=== PATIENT | male | born 1995 | race Caucasian/White ===

== ENCOUNTER 2023-04-19 07:57 | Emergency (ER) | payer MEDICAID, SELFPAY ==
[2023-04-19 08:03] VITALS: BP 145/101; PULSE 90; RESP 18; TEMP 35.8; O2SAT 98; BMI 39.1
--- NOTE | 2023-04-19 08:09 | ED.GENADULT ---
HPI - General Adult General Time Seen by Provider: 08:09 Date Seen: 04/19/23 Chief complaint: Abdominal Pain Stated complaint: right side abdominal pain Time Seen by Provider: 04/19/23 08:09 Source: patient Mode of arrival: ambulatory Limitations: no limitations History of Present Illness HPI narrative: Dequan is a 28-year-old male past medical history includes hypertension presents emerged department via private car with a right-sided abdominal. Patient states around 7:30 a.m. 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 Patient did have some generalized abdominal pain prior to going to bed last night, it progressively got worse this morning. He has had some chills, no fevers, he feels sweaty, he denies any chest pain or shortness of breath, denies any upper respiratory complaints. Patient had similar symptoms many years ago, they told him he was constipated. The patient states he has had normal bowel movements recently. No abdominal surgeries. Related Data Home Medications Medication Instructions Recorded Confirmed cyclobenzaprine 10 mg tablet 10 mg PO 3XD 04/19/23 04/19/23 metoprolol succinate 100 mg 100 mg PO DAILY 04/19/23 04/19/23 tablet,extended release 24 hr Previous Rx's Medication Instructions Recorded oxycodone-acetaminophen 5 mg-325 1 tab PO Q8H PRN pain #7 tabs 04/19/23 mg tablet (Percocet) tamsulosin 0.4 mg capsule (Flomax) 0.4 mg PO DAILY #3 caps 04/19/23 Allergies Allergy/AdvReac Type Severity Reaction Status Date / Time Penicillins AdvReac Severe Verified 04/19/23 08:17 amoxicillin AdvReac Intermediate Verified 04/19/23 08:10 hydrocodone AdvReac Intermediate Verified 04/19/23 08:10 Review of Systems Status of ROS: Reports: 10 or more systems reviewed and unremarkable except as noted in History and below PFSH PFSH Social History Smoking Status: Never smoker Do you use any of these nicotine containing products: None How often do you have a drink containing alcohol: monthly or less How often do you have six or more drinks on one occasion: Never AUDIT-C Alcohol total score: 1 Non-prescribed substance use: denies use Exam Narrative: Exam Narrative: General: Mild distress sitting up HEENT: Pupils equal round reactive to light, extraocular muscles intact Lungs: Clear to auscultation bilaterally Heart: Normal sinus rhythm S1-S2 Abdomen: Bowel sounds present, soft, tender to palpation right upper quadrant and flank Muscle skeletal: +5 upper lower extremit Neuro: Alert awake and oriented x3 Const: Vital Signs, click to edit/add: Vital Signs - 24 hr 04/19/23 08:03 04/19/23 10:05 Temperature 96.5 F L 97.7 F Pulse Rate [Right Pulse Oximeter] 90 82 Respiratory Rate 18 18 Blood Pressure [Ri ght Upper Arm] 145/101 H 134/88 Pulse Oximetry 98 95 Oxygen Delivery Me thod Room Air Room Air Course Course ED Course: 8:00 AM: AIDET performed, workup will include IV peripheral, 0.9 normal saline bolus, 50 mg IV Toradol, 0.5 mg IV Dilaudid for pain, will obtain CBC, CRP, CMP, lipase, urinalysis, suspect urolithiasis versus cholecystitis versus gastritis seems less likely appendicitis. differential diagnosis include life-threatening of appendicitis, aortic aneurysm, mesentery ischemia, bowel perforation, volvulus and bowel obstruction. Other considerations include IBD, cholecystitis, pancreatitis, hepatitis, gastritis, GERD, diverticulitis, pyelonephritis, UTI, urolithiasis. Reevaluation(s) Time of Reevaluation #1: 09:19 Reevaluation #1: Urinalysis was 3+ blood, will obtain CT abdomen pelvis without IV contrast rule out urolithiasis. CBC showed no leukocytosis, normal CRP, lipase within normal limits, metabolic panel within normal, LFTs mildly elevated, patient is feeling better after above care given. Time of Reevaluation #2: 10:59 Reevaluation #2: CT abdomen pelvis without IV contrast: IMPRESSION: Punctate calculus in the right ureterovesical junction/bladder with minimal right hydroureteronephrosis. Patient was given additional Flomax 0.4 mg, patient is doing well, urinalysis showed no signs infection, urine culture was pending, patient will pass the punctuate calculus, should follow-up with primary care provider over the neck 7-10 days, return precautions given. Vital Signs Vital signs: Initial Vital Signs Temperature 96.5 F L 04/19/23 08:03 Temperature Source Temporal Artery Scan 04/19/23 08:03 Pulse Rate 90 04/19/23 08:03 Pulse Rhythm Regular 04/19/23 08:03 Pulse Strength 3+ Normal 04/19/23 08:03 Respiratory Rate 18 04/19/23 08:03 Blood Pressure 145/101 H 04/19/23 08:03 Blood Pressure Mean 115 H 04/19/23 08:03 Blood Pressure Position Sitting 04/19/23 08:03 Pulse Oximetry 98 04/19/23 08:03 Oxygen Delivery Method Room Air 04/19/23 08:03 Vital Signs Temperature 96.5 F L 04/19/23 08:03 Pulse Rate 90 04/19/23 08:03 Respiratory Rate 18 04/19/23 08:03 Blood Pressure 145/101 H 04/19/23 08:03 Pulse Oximetry 98 04/19/23 08:03 Oxygen Delivery Method Room Air 04/19/23 08:03 Temperature 97.7 F 04/19/23 10:05 Pulse Rate 82 04/19/23 10:05 Respiratory Rate 18 04/19/23 10:05 Blood Pressure 134/88 04/19/23 10:05 Pulse Oximetry 95 04/19/23 10:05 Oxygen Delivery Method Room Air 04/19/23 10:05 Medications Administered Medications: Discontinued Medications Generic Name Dose Route Start Last Admin Trade Name Freq PRN Reason Stop Dose Admin Hydromorphone HCl 0.5 mg 04/19/23 08:26 04/19/23 08:40 Hydromorphone 0.5 Mg/0.5 Ml Inj IVP 04/19/23 08:27 0.5 mg ONCE ONE Administration Sodium Chloride 1,000 mls @ 1,000 mls/hr 04/19/23 08:14 04/19/23 09:12 0.9 % Sodium Chloride 1000 Ml IV 04/19/23 09:13 Infused .Q1H CHEMA Infusion Ketorolac Tromethamine 15 mg 04/19/23 08:13 04/19/23 08:35 Ketorolac 15 Mg/Ml Inj IVP 04/19/23 08:14 15 mg ONCE ONE Administration Tamsulosin HCl 0.4 mg 04/19/23 11:00 04/19/23 10:45 Tamsulosin Hcl 0.4 Mg Capsule PO 04/19/23 11:01 0.4 mg ONCE ONE Administration Medical Decision Making Lab Data Labs: Lab Results 04/19/23 04/19/23 Range/Units 08:20 08:30 WBC 8.14 (4.50-11.00) K/uL RBC 5.69 (4.30-5.90) m/uL Hgb 16.7 (13.5-17.5) gm/dL Hct 49.1 (37.0-53.0) % MCV 86 (80-100) fL MCH 29 (26-34) pg MCHC 34 (32-36) gm/dL RDW Coeff of Juany 11.6 (11.5-15.5) % Plt Count 408 (140-440) K/uL Neut % (Auto) 67.6 (42.0-72.0) % Lymph % (Auto) 23.6 (20-44) % Ector % (Auto) 6.0 (0.0-11.0) % Eos % (Auto) 2.1 (0.0-7.0) % Baso % (Auto) 0.5 (0.0-3.0) % Neut # (Auto) 5.50 (1.7-7.0) K/uL Lymph # (Auto) 1.92 (0.90-2.90) K/uL Ector # (Auto) 0.50 (0.00-0.90) K/UL Eos # (Auto) 0.17 (0.00-0.50) K/uL Baso # (Auto) 0.04 (0.00-0.30) K/uL Abs Immat Gran (auto) 0.02 (0.00-0.30) K/uL Imm/Tot Granulo (auto) 0.2 % Sodium 141 (135-149) mmol/L Potassium 3.8 (3.6-5.1) mmol/L Chloride 106 (96-114) mmol/L Carbon Dioxide 21 (20-32) mmol/L Anion Gap 14 (7-15) mEq/L BUN 13 (5-24) mg/dL Creatinine 0.8 (0.5-1.5) mg/dL Estimated Creat Clear 143.80 Estimated GFR 122 ml/min Glucose 123 H (60-115) mg/dL Calcium 10.0 (8.4-10.6) mg/dL Total Bilirubin 1.0 (0.1-1.5) mg/dL AST 60 H (12-35) U/L ALT 92 H (4-50) U/L Alkaline Phosphatase 57 (40-150) U/L C-Reactive Protein 1.0 (0.5-1.0) mg/dL Total Protein 9.3 H (6.0-8.3) g/dL Albumin 5.3 H (3.3-5.0) g/dL Lipase 43 (23-300) U/L Urine Color Dark yellow (Yellow) Urine Appearance Slightly Cloudy A (Clear) Urine pH 8.0 (5.0-8.5) Ur Specific [place] 1.020 (1.000-1.030) Urine Protein Trace A (Negative) Urine Glucose (UA) Negative (Negative) Urine Ketones Trace A (Negative) Urine Blood 3+ A (Negative) Urine Nitrite Negative (Negative) Urine Bilirubin Negative (Negative) Urine Urobilinogen 0.2 (0.2-1.0) Ur Leukocyte Esterase Negative (Negative) Urine RBC >100 A (0-2) Urine WBC 5-10 A (0-5) Ur Squamous Epith Cells Few (None-Few) Urine Bacteria Moderate A (None) Urine Mucus Moderate A (None) Discharge Plan Discharge Clinical Impression: Urolithiasis Patient Disposition: Home, Self-Care Condition: Improved Instructions: Renal Colic (ED) Additional Instructions: To continue with Motrin 600 mg ever 4-6 hours for pain, add Percocet 5-325 mg tablet for breakthrough pain. Additional Flomax 0.4 mg daily until stone has passed, to follow up with primary care provider in the next 7-10 days. Return if worsening symptoms. Activity Level: No Restrictions Prescriptions: New tamsulosin [Flomax] 0.4 mg capsule 0.4 mg PO DAILY Qty: 3 0RF oxycodone-acetaminophen [Percocet] 5-325 mg tablet 1 tab PO Q8H PRN (Reason: pain) Qty: 7 0RF No Action cyclobenzaprine 10 mg tablet 10 mg PO 3XD metoprolol succinate 100 mg tablet extended release 24 hr 100 mg PO DAILY Follow Up/Referrals: Provider,Not a Local [Referring] - Stand Alone Forms: [facility] Info Instructions
[2023-04-19 08:31] LABS: Basophils Absolute Auto 0.04 K/uL (0.00-0.30); Basophils Percent Auto 0.5 % (0.0-3.0); Eosinophils Absolute Auto 0.17 K/uL (0.00-0.50); Eosinophils Percent Auto 2.1 % (0.0-7.0); Hematocrit 49.1 % (37.0-53.0); Hemoglobin* 16.7 gm/dL (13.5-17.5); Immature Granulocytes Abs Auto 0.02 K/uL (0.00-0.30); Immature Granulocytes Pct Auto 0.2 %; Lymphocytes Absolute Auto 1.92 K/uL (0.90-2.90); Lymphocytes Percent Auto 23.6 % (20-44); Mean Corpuscular HGB Conc 34 gm/dL (32-36); Mean Corpuscular Hemoglobin 29 pg (26-34); Mean Corpuscular Volume 86 fL (80-100); Neutrophils Percent Auto 67.6 % (42.0-72.0); Platelet Count* 408 K/uL (140-440); RDW Coefficient of Variation % 11.6 % (11.5-15.5); Red Blood Count 5.69 m/uL (4.30-5.90); White Blood Count* 8.14 K/uL (4.50-11.00)
[2023-04-19] MEDS: 0.9 % SODIUM CHLORIDE 1000 ml 1,000 ML IV (08:34)
[2023-04-19] MEDS: KETOROLAC 15 MG/ML inj IVP (08:35)
[2023-04-19 08:36] LABS: Slide Review Reflex No
[2023-04-19] MEDS: HYDROmorphone 0.5 mg/0.5 ml inj IVP (08:40)
[2023-04-19 08:41] LABS: Appearance Urine Slightly Cloudy (Clear); Bilirubin Urine Negative (Negative); Blood Urine 3+ (Negative); Color Urine Dark yellow (Yellow); Glucose Urine Negative (Negative); Ketones Urine Trace (Negative); Leukocyte Esterase Urine Negative (Negative); Nitrite Urine Negative (Negative); Protein Urine Trace (Negative); Urobilinogen Urine 0.2 (0.2-1.0)
[2023-04-19 08:47] LABS: Albumin* 5.3 g/dL (3.3-5.0); Chloride* 106 mmol/L (96-114)
[2023-04-19 08:48] LABS: Potassium* 3.8 mmol/L (3.6-5.1); Sodium* 141 mmol/L (135-149)
[2023-04-19 08:50] LABS: Alanine Aminotransferase* 92 U/L (4-50); Alkaline Phosphatase* 57 U/L (40-150); Anion Gap 14 mEq/L (7-15); Aspartate Amino Transferase* 60 U/L (12-35); Blood Urea Nitrogen* 13 mg/dL (5-24); Carbon Dioxide* 21 mmol/L (20-32); Creatinine* 0.8 mg/dL (0.5-1.5); Estimated Glomerular Filt Rate 122 ml/min; Lipase* 43 U/L (23-300); Total Protein* 9.3 g/dL (6.0-8.3)
[2023-04-19 08:51] LABS: Glucose* 123 mg/dL (60-115)
[2023-04-19 08:58] LABS: Bacteria Urine Moderate; Mucus Urine Moderate; RBC Urine >100 (0-2); Squamous Epithelial Cell Urine Few (None-Few)
--- NOTE | 2023-04-19 09:18 | CRLHL7_ITS ---
For Patients: As a result of the Century Cures Act, medical imaging exams and procedure reports are released immediately into your electronic medical record. You may view this report before your referring provider. If you have questions, please contact your health care provider. INDICATION: Question urolithiasis. TECHNIQUE: CT abdomen and pelvis without contrast. COMPARISON: None available. FINDINGS: Lower chest: Minimal scarring versus subsegmental atelectasis in the visualized lung bases Liver: Unremarkable for unenhanced technique. Gallbladder and bile ducts: No stones or inflammation. No biliary dilatation. Pancreas: Unremarkable for unenhanced technique. Spleen: Unremarkable for unenhanced technique. Adrenal glands: Normal in size. No nodules. Kidneys: Punctate calcification at the right ureterovesical junction versus adjacent dependent portion of the bladder. There is minimal right hydroureteronephrosis. Otherwise, no renal or ureteral calculi identified. GI tract: Unremarkable. Normal in caliber. No sign of mass or inflammation. Normal appendix. Vasculature: Abdominal aorta is normal in caliber. Lymph nodes: No lymphadenopathy. Peritoneum/Abdominal Wall: Small fat containing right inguinal hernia. No intraperitoneal free air or free fluid. Pelvis: Decompressed bladder. Bones: Partially visualized left femoral intramedullary nail. IMPRESSION: Punctate calculus in the right ureterovesical junction/bladder with minimal right hydroureteronephrosis. Please note that all CT scans at this facility use dose modulation, iterative reconstruction, and/or weight-based dosing when appropriate to reduce radiation dose to as low as reasonably achievable. Dictated by Judy Rudd MD @ 04/19/2023 10:22:36 AM (Electronically Signed)
[2023-04-19 10:05] VITALS: BP 134/88; PULSE 82; RESP 18; TEMP 36.5; O2SAT 95
[2023-04-19] MEDS: TAMSULOSIN HCL 0.4 MG CAPSULE PO (10:45)
== END 2023-04-19 11:40 | disposition home or self-care (01) ==
PROVIDERS: Emergency Provider Student in an Organized Health Care Education/Training Program; PCP Family Medicine
DX: N20.9 Urinary calculus, unspecified (principal)
CPT/HCPCS: 36415; 74176; 80053; 81003; 81015; 83690; 85025; 86140; 87086; 96374; 96375; 99283; 99284; A9270; J1170; J1885; J7030

== ENCOUNTER 2024-09-02 09:44 | Emergency (ER) | payer MEDICAID, SELFPAY ==
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
--- OUTSIDE RECORDS SUMMARY | 2024-09-02 09:46 | XMS_ITS | Encounter Summary ---
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
--- OUTSIDE RECORDS SUMMARY | 2024-09-02 09:46 | XMS_ITS | Encounter Summary ---
Author Organization [facility] Address [address], [place] [address] Care Team Providers Care Marine Scientist Name Role Phone Jerardo Spring MD Primary Care Provider [phone] Encounter Details Date Type Department Care Team (Latest Contact Info) Description 09/05/1997 Orders Only Chely Neely Social History Tobacco Use Types Packs/Day Years [...] on filedocumented in this encounter Care Teams Marine Scientist Relationship Specialty [place] [address] [place] [address] PCP - General Family Practice 03/06/18 documented as of this encounter
--- OUTSIDE RECORDS SUMMARY | 2024-09-02 09:46 | XMS_ITS | Encounter Summary ---
Author Organization [facility] Address [address], [place] [address] Care Team Providers Care Hot Air Furnace Installer Repairer Name Role Phone Jerardo Spring MD Primary Care Provider [phone] Encounter Details Date Type Department Care Team (Latest Contact Info) Description 01/13/1997 Orders Only Chely Neely Social History Tobacco [...] on filedocumented in this encounter Care Teams Hot Air Furnace Installer Repairer Relationship Specialty [place] [address] [place] [address] PCP - General Family Practice 03/06/18 documented as of this encounter
--- OUTSIDE RECORDS SUMMARY | 2024-09-02 09:46 | XMS_ITS | Encounter Summary ---
Author Organization [facility] Address [address] [address] Care Team Providers Care Blood Bank Business Manager Name Role Phone Jerardo Spring MD Primary Care Provider [phone] Encounter Details Date Type Department Care Team (Late st Contact Info) Description 02/26/2014 Home Visit [facility] [address] [place] [address], [address] [place] [address] Mabel Sewell Social History Tobacco Use Types Packs/Day Years Used Date Smoking Tobacco: Some Days Cigars Comments:Twice a month Alcohol Use Standard Drinks/Week Comments Yes 0 (1 standard drink = 0.6 oz pur e alcohol) occasional Sex and Gender Information Value Date Recorded Sex Assigned at Not on file Legal Sex Male 5:59 PM CDT Gender Identity Not on file Sexual Orientation Not on file documented as of this encounter Progress Notes * Mabel Sewell - 02/26/2014 8:56 PM CST S: Recert Summary- focus of care for the next 60 days is L femur Fx - sp ORIF. B: Pt has been seen by SN for medication management, pain management and wound assessment. Surgical wounds are healed and pain is now controlled with Tylenol, Ibuprofen and Cyclobenzaprine. SN discharged their service on 01/31/14. Pt continues to receive PT for gait training, stair mobility, L LE ROM/strength ex, HEP and falls prevention. Pt has made progress with gait training with new orders to begin WB on L LE. Pt is currently allowed 40 lb WB on L LE with order to increase WB by 20 lbs every week until return to ortho on 03/26/14. Current assistance available: pt lives with father and sister who continue to assist as needed. Medication review: Reviewed current medications. No discrepancies. Pt is able to take his meds indep. Vitals: HR 90 bpm, BP 136/90 mmHg, Temp 98.8deg F Wounds: surgical incisions are healed . Pt has no PU or open areas. Edema: moderate dependent edema L foot/ankle Bowel/Bladder: no constipation or incontinence Pain: PL in L LE is 0/10 at best, 5/10 at worst. Pain is controlled with meds and rest. ROM: L knee AROM 0-90 degrees. L ankle and hip ROM is WFL. Strength: L quad strength is 4-/5. Pt is indep with L LE SLR with 10 degree ext lag. L hip strength is 4+/5, L ankle strength is 4/5. Transfers: indep sit >< stand at bed, chair, toilet. Pt needs CGA to step over walk in shower threshold due to PWB status on L LE. Father provides assist with shower transfer. Gait: Indep with use of 2ww on level surface. Pt able to amb with crutches with supervision on level surface in home with 40 lb WB restriction on L LE. Bed mobility: indep . Pt is no longer using the hospital bed. Stair mobility: up/down 1 flight of steps with use of 1 railing and crutches with supervision. Pt needs close SBA for amb up/down 3 garage steps without railing. Balance: 5 /10 MAHC10 is fall risk. Control/coordination: decreased coordination L LE due to weakness in quad Home safety: pt has a dog, cat and stairs which are falls hazard. No other issues. Cognition: A & O x 3 Mood/anxiety/confusion: Anxiety improved per pt report. Pt does report some depression since being home bound. Equipment: 2ww, W/C, crutches A: PT impression : Pt is making progress with transfers, gait, stair mobility, L knee ROM, L quad strength. Skilled PT is appropriate to progress to indep stair mobility, gait training with gradual increase in L LE WB as ordered. Pt will also need cont PT to work on L knee ROM/strength to maximize functional use of L LE for return to indep PLOF and return to community mobility. Reviewed care plan goals/interventions which are appropriate . R: PT 1x/week for 4 weeks. Mabel Sewell, PT TREATING OPERATOR documented in this encounter Plan of Treatment Not on file documented as of this encounter Visit Diagnoses Not on filedocumented in this encounter Care Teams Blood Bank Business Manager Relationship Specialty [place] [address] [place] [address] PCP - General Family Practice 03/06/18 documented as of this encounter
--- OUTSIDE RECORDS SUMMARY | 2024-09-02 09:46 | XMS_ITS | Encounter Summary ---
Author Organization [facility] Address [address] [place] [address] Care Team Providers Care Figure Skater Name Role Phone Jerardo Spring MD Primary Care Provider [phone] Encounter Details Date Type Department Care Team (Late st Contact Info) Description 04/09/2014 Correspondence [facility] [address] [place] [phone] Myranda Balderas MD [address] [place], [place] [phone] ORDER TRAVELERS Social History Tobacco Use Types Packs/Day Years [...] on filedocumented in this encounter Care Teams Figure Skater Relationship Specialty [place] [address] [place] [address] PCP - General Family Practice 03/06/18 documented as of this encounter
--- OUTSIDE RECORDS SUMMARY | 2024-09-02 09:46 | XMS_ITS | Encounter Summary ---
Author Organization [facility] Address [address] [address] Care Team Providers Care Grocery Clerk Selling Name Role Phone Jerardo Spring MD Primary Care Provider [phone] Encounter Details Date Type Department Care Team (Late st Contact Info) Description 06/14/2014 Correspondence [facility] [address] [place] [address] Radiology, Provider MRI SAFETY SHEET AND COMPATIBILITY FORM Social History Tobacco Use Types Packs/Day Years Used Date Smoking Tobacco: Some Days Cigars Smokeless Tobacco: Never Comments:Twice a month Alcohol Use Standard Drinks/Week [...] on filedocumented in this encounter Care Teams Grocery Clerk Selling Relationship Specialty [place] [address] [place] [address] PCP - General Family Practice 03/06/18 documented as of this encounter
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
--- OUTSIDE RECORDS SUMMARY | 2024-09-02 09:46 | XMS_ITS | Encounter Summary ---
Author Organization [facility] Address [address] [place] [address] Care Team Providers Care Bass Guitar Teacher Name Role Phone Jerardo Spring MD Primary Care Provider [phone] Encounter Details Date Type Department Care Team (Latest Contact Info) Description 06/24/1998 Orders Only [facility] Social History Tobacco Use Types Packs/Day Years [...] on filedocumented in this encounter Care Teams Bass Guitar Teacher Relationship Specialty [place] [address] [place] [address] PCP - General Family Practice 03/06/18 documented as of this encounter
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
--- OUTSIDE RECORDS SUMMARY | 2024-09-02 09:46 | XMS_ITS | Encounter Summary ---
Author Organization [facility] Address [address], [place] [address] Care Team Providers Care Family Law Paralegal Name Role Phone Jerardo Spring MD Primary Care Provider [phone] Encounter Details Date Type Department Care Team (Late st Contact Info) Description 01/04/2014 Emergency Room External to [facility], Provider TACHYCARDIA ANXIETY SHORTNESS OF BREATH Social History Tobacco Use Types Packs/Day Years [...] on filedocumented in this encounter Care Teams Family Law Paralegal Relationship Specialty [place] [address] [place] [address] PCP - General Family Practice 03/06/18 documented as of this encounter
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
--- OUTSIDE RECORDS SUMMARY | 2024-09-02 09:46 | XMS_ITS | Encounter Summary ---
Author Organization [facility] Address [address], [place] [address] Care Team Providers Care Insulator Helper Name Role Phone Jerardo Spring MD Primary Care Provider [phone] Encounter Details Date Type Department Care Team (Late st Contact Info) Description 08/19/1994 Orders Only [facility] Lester Kay MD [facility] [address] [place], [place] [id number] Social History Tobacco Use Types Packs/Day Years [...] on filedocumented in this encounter Care Teams Insulator Helper Relationship Specialty [place] [address] [place], [place] [id number] PCP - General Family Practice 03/06/18 documented as of this encounter
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
--- OUTSIDE RECORDS SUMMARY | 2024-09-02 09:46 | XMS_ITS | Encounter Summary ---
Author Organization [facility] Address [address] [place] [address] Care Team Providers Care Lockstitch Topstitcher Name Role Phone Jerardo Spring MD Primary Care Provider [phone] Encounter Details Date Type Department Care Team (Late st Contact Info) Description 04/05/2014 Correspondence [facility] [address] [place] [address] Myranda Balderas MD [address] [place], [place] [address] 11 HOME CARE ORDERS Social History Tobacco Use Types Packs/Day Years [...] on filedocumented in this encounter Care Teams Lockstitch Topstitcher Relationship Specialty [place] [address] [place] [address] PCP - General Family Practice 12/3/18 documented as of this encounter
--- OUTSIDE RECORDS SUMMARY | 2024-09-02 09:46 | XMS_ITS | Encounter Summary ---
Author [facility] Address [address], [place] [address] Care Team Providers Care Central Office Operator Supervisor Name Role Phone Jerardo Spring MD Primary Care Provider [phone] Encounter Details Date Type Department Care Team (Late st Contact Info) Description 02/22/2014 Correspondence None No Primary/Referring, Phy MOBILITY ASSISTIVE EQUIPMENT Social History Tobacco Use Types Packs/Day Years [...] on filedocumented in this encounter Care Teams Central Office Operator Supervisor Relationship Specialty [place] [address] [place] [address] PCP - General Family Practice 03/06/18 documented as of this encounter
--- OUTSIDE RECORDS SUMMARY | 2024-09-02 09:46 | XMS_ITS | Encounter Summary ---
Author Organization [facility] Address [address], [place] [address] Care Team Providers Care Health Nurse Name Role Phone Jerardo Spring MD Primary Care Provider [phone] Encounter Details Date Type Department Care Team (Latest Contact Info) Description 03/14/2014 Correspondence None No Primary/Referring, Phy [place] Social History Tobacco Use Types Packs/Day Years [...] on filedocumented in this encounter Care Teams Health Nurse Relationship Specialty [place] [address] [place] [address] PCP - General Family Practice 03/06/18 documented as of this encounter
--- OUTSIDE RECORDS SUMMARY | 2024-09-02 09:46 | XMS_ITS | Encounter Summary ---
Author Organization [employer] Address [address] [place] [address] Care Team Providers Care Experimental Flight Test Mechanic Name Role Phone Jerardo Spring MD Primary Care Provider [phone] Reason for Visit * Reason Comments Refill metoprolol succinate (TOPROL XL) 50 MG 24 hour release tablet [Pharmacy Med Name: METOPROLOL ER SUCCINATE 50MG TABS] Encounter Details Date Type Department Care Team (Late st Contact Info) Description 08/02/2024 Refill [facility] [id number] [place] [phone] [place] [id number] [place] [id number] Refill (metoprolol succinate (TOPROL XL) 50 MG 24 hour release tablet [Pharmacy Med Name: METOPROLOL ER SUCCINATE 50MG TABS]) Social History Tobacco Use Types Packs/Day Years [...] any time in the past 12 m [facility], were you homeless or living in a penitentiary (including now)? No 07/11/2024 Sex and Gender Information Value Date Recorded Sex Assigned at Not on file Legal Sex Male 5:59 PM CDT Gender Identity Not on file Sexual Orientation Not on file Occupation Industry Job Start Date Job End Date not working since [employer] 2 years ago Not on file Not on file Not on file documented as of this encounter Nursing Notes * Evonne Lopez RN - 08/06/2024 2:24 PM CDT Further Assistance Needed on Refill from Clinician RN reviewed. Medication ordered for short term. Medication newly ordered in last 12 months and Please advise if intermediate designer supply is appropriate Review pended order for accuracy and sign if appropriate, Document if appointment is needed for further refills, and Route to Front Line to schedule appointment Requested Prescriptions Pending Prescriptions Disp Refills metoprolol succinate (TOPROL XL) 50 MG 24 hour release tablet [Pharmacy Med Name: METOPROLOL ER SUCCINATE 50MG TABS] 90 Tablet 3 Sig: TAKE 1 TABLET(50 MG) BY MOUTH DAILY documented in this encounter Plan of Treatment Not on file documented as of this encounter Visit Diagnoses Diagnosis Tachycardia Tachycardia, unspecified documented in this encounter Care Teams Experimental Flight Test Mechanic Relationship Specialty [place] [address] [place] [address] PCP - General Family Practice 03/06/18 documented as of this encounter
--- OUTSIDE RECORDS SUMMARY | 2024-09-02 09:46 | XMS_ITS | Clinical Summary ---
Author Organization [facility] Address [address] [place] [address] Care Team Providers Care Wire Spinner Name Role Phone [facility] Primary Care Provider Allergies Active Allergy Reactions Criticality Noted Date Comments Penicillins 02/19/2018 Burning down esophagus Hydrocodone-Acetaminophen Hives 01/04/2014 Medications LORazepam (ATIVAN) 0.5 MG tablet Take 1 tablet (0.5 mg) by mouth every 8 hours as needed for anxiety 8 tablet 0 01/04/2014 Active LORazepam (ATIVAN) 0.5 MG tablet Take 1 tablet (0.5 mg) by mouth every 8 hours as needed for anxiety 8 tablet 0 01/04/2014 Active AMLODIPINE BESYLATE PO Active PREDNISONE PO Active MOTRIN IB PO Active Social History Tobacco Use Types Packs/Day Years Used Date Smoking Tobacco: Former Smokeless Tobacco: Former Alcohol Use Standard Drinks/Week Comments Yes 0 (1 standard drink = 0.6 oz pur e alcohol) occasional Sex and Gender Information Value Date Recorded Sex Assigned at Not on file Legal Sex Male 3:35 AM SENIOR TECHNICAL SUPPORT ENGINEER Gender Identity Not on file Sexual Orientation Not on file Last Filed Vital Signs Vital Sign Reading Time Taken Comments Blood Pressure 131/87 02/19/2018 2:47 PM SENIOR TECHNICAL SUPPORT ENGINEER Pulse 99 02/19/2018 1:48 PM SENIOR TECHNICAL SUPPORT ENGINEER Temperature 36.7 C (98 F) 02/19/2018 1:48 PM SENIOR TECHNICAL SUPPORT ENGINEER Respiratory Rate 16 02/19/2018 1:48 PM SENIOR TECHNICAL SUPPORT ENGINEER Oxygen Saturation 98% 02/19/2018 1:48 PM SENIOR TECHNICAL SUPPORT ENGINEER Inhaled Oxygen Concentration - - Weight 122.5 kg (270 lb) 02/19/2018 1:48 PM SENIOR TECHNICAL SUPPORT ENGINEER Height - - Body Mass Index - - Plan of Treatment Not on file Insurance [employer] Care Teams Wire Spinner Relationship Specialty Start Date End Date [facility] [address] [place] [address] PCP - General 01/04/14
--- OUTSIDE RECORDS SUMMARY | 2024-09-02 09:46 | XMS_ITS | Encounter Summary ---
Author Organization [facility] Address [address], [place] [address] Care Team Providers Care Guest Service Representative Name Role Phone Jerardo Spring MD Primary Care Provider [phone] Encounter Details Date Type Department Care Team (Late st Contact Info) Description 12/25/2013 Consent for Procedure/Treatme nt [facility] INFORMED CONSENT RECORD Social History Tobacco Use Types Packs/Day Years [...] on filedocumented in this encounter Care Teams Guest Service Representative Relationship Specialty [place] [address] [place] [address] PCP - General Family Practice 03/06/18 documented as of this encounter
--- OUTSIDE RECORDS SUMMARY | 2024-09-02 09:46 | XMS_ITS | Encounter Summary ---
Author Organization [facility] Address [address], [place] [address] Care Team Providers Care Manager Operations Research Name Role Phone Jerardo Spring MD Primary Care Provider [phone] Encounter Details Date Type Department Care Team (Latest Contact Info) Description 03/21/1998 Orders Only Trevon Manley MD Social History Tobacco Use Types Packs/Day Years [...] on filedocumented in this encounter Care Teams Manager Operations Research Relationship Specialty [place] [address] [place] [address] PCP - General Family Practice 03/06/18 documented as of this encounter
--- OUTSIDE RECORDS SUMMARY | 2024-09-02 09:46 | XMS_ITS | Encounter Summary ---
Author Organization [facility] Address [address], [place] [address] Care Team Providers Care Primary Health Organisation Manager Name Role Phone Jerardo Spring MD Primary Care Provider Encounter Details Date Type Department Care Team (Late st Contact Info) Description 05/18/1994 Orders Only [facility] Gemma Smith MD Social History Tobacco Use Types Packs/Day [...] on filedocumented in this encounter Care Teams Primary Health Organisation Manager Relationship Specialty [place] [address] [place] [address] PCP - General Family Practice 03/06/18 documented as of this encounter
--- OUTSIDE RECORDS SUMMARY | 2024-09-02 09:46 | XMS_ITS | Encounter Summary ---
Author Organization Counts include 234 beds at the [facility] Address [address] [place] [address] Care Team Providers Care Import Coordinator Name Role Phone Jerardo Spring MD Primary Care Provider [phone] Encounter Details Date Type Department Care Team (Late st Contact Info) Description 02/22/2018 Correspondence [facility] [address] [place], [place] [phone] [place] [address] [place], [place] [id number] CERTIFICATION OF HEALTH CARE PROVIDER Social History Tobacco Use Types Packs/Day Years Used Date Smoking Tobacco: Former Cigars Smokeless Tobacco: Never Comments:Twice a month Alcohol Use Standard Drinks/Week Comments No 0 (1 standard drink = 0.6 oz [...] on filedocumented in this encounter Care Teams Import Coordinator Relationship Specialty [place] [address] [place] [address] PCP - General Family Practice 03/06/18 documented as of this encounter
[2024-09-02 09:50] VITALS: BP 159/106; PULSE 89; RESP 18; TEMP 36.1; O2SAT 95; BMI 32.6
--- NOTE | 2024-09-02 09:57 | CRLHL7_ITS ---
For Patients: As a result of the Century Cures Act, medical imaging exams and procedure reports are released immediately into your electronic medical record. You may view this report before your referring provider. If you have questions, please contact your health care provider. Indication: Injury 4 days ago, hard impact on water slide, fracture of back diagnosed in [place], history of spine degeneration. Technique: Noncontrast axial CT of the lumbar spine with coronal and sagittal reformats. Comparison: CT abdomen pelvis report 04/19/2023 Findings: Acute fracture of the left ventral L1 body, involving superior and inferior endplates, with 9 mm cortical anteropulsion. Preserved lumbar lordosis. No spondylolisthesis. No other acute fracture identified. No high-grade neural foraminal or spinal canal stenosis. Included SI joints appear symmetric and atraumatic. Impression: 1. Acute L1 compression fracture as detailed. 2. No spinal canal stenosis. Please note that all CT scans at this facility use dose modulation, iterative reconstruction, and/or weight-based dosing when appropriate to reduce radiation dose to as low as reasonably achievable. Dictated by Ashley Mcclure MD @ 09/02/2024 10:36:55 AM (Electronically Signed)
--- NOTE | 2024-09-02 09:58 | ED_ITS ---
HPI - General Adult General Chief complaint: Back Injury/Pain Stated complaint: Broke back on 4 days ago Time Seen by Provider: 09/02/24 09:50 History of Present Illness HPI narrative: 29 year white male was at a water slide in [place] and injured his back. He had an evaluation at an ER and had lumbar fracture by his report. They set him up to see someone in [facility] but he wanted to come back to [place]. He denies leg pain but did not describes low back pain he reports that he had a ?lumbar? fracture. He has no imaging or other records with him. He is generally healthy other than hypertension he takes medicine for that. He has been Oxy on oxycodone as well. No bowel or bladder incontinence fever chills perineal numbness. He points to his lumbar spine just above his belt line where he has discomfort. He is able to ambulate but he is in good amount of discomfort. Related Data Home Medications ?Medication ?Instructions ?Recorded ?Confirmed cyclobenzaprine 10 mg tablet 10 mg PO 3XD 04/19/2304/28 metoprolol succinate 100 mg 50 mg PO DAILY 04/19/23 tablet,extended release 24 hr oxycodone 5 mg capsule 5 mg PO Q6H 09/02/24 5 Previous Rx's ?Medication ?Instructions ?Recorded oxycodone-acetaminophen 5 mg-325 1 tab PO Q8H PRN pain #7 tabs 04/19/23 mg tablet (Percocet) tamsulosin 0.4 mg capsule (Flomax) 0.4 mg PO DAILY #3 caps 04/19/23 Allergies Allergy/AdvReac Type Severity Reaction Status Date / Time Penicillins AdvReac Severe Verified 04/19/23 08:17 amoxicillin AdvReac Intermediate Verified 04/19/23 08:10 hydrocodone AdvReac Intermediate Verified 04/19/23 08:10 Review of Systems Status of ROS: Reports: 6 or more systems reviewed and unremarkable except as noted in History and below PFSH PFSH Social History Smoking Status: Never smoker Do you use any of these nicotine containing products: None How often do you have a drink containing alcohol: monthly or less How often do you have six or more drinks on one occasion: Never AUDIT-C Alcohol total score: 1 Non-prescribed substance use: denies use Exam Narrative: Exam Narrative: Objective: Patient's vital signs show elevated blood pressure He is alert or x3 He is in mild distress and is back discomfort Slightly flexed position, he is able to ambulate has decent strength in his lower extremities He has some palpable tenderness along his paravertebral muscles and midline of his lumbar spine. No bruising noted. Const: Vital Signs, click to edit/add: Vital Signs - 24 hr 09/02/24 09:50 09/02/24 10:37 09/02/24 10:37 Temperature 96.9 F L Pulse Rate 75 Pulse Rate [Pulse Oximeter] 89 70 Respiratory Rate 18 16 Blood Pressure Blood Pressure [Ri ght Upper Arm] 159/106 H 125/84 Pulse Oximetry 95 96 95 Oxygen Delivery Me thod Room Air Room Air 09/02/24 10:39 09/02/24 10:45 09/02/24 11:00 Temperature Pulse Rate 73 74 68 Pulse Rate [Pulse Oximeter] Respiratory Rate Blood Pressure 125/84 Blood Pressure [Ri ght Upper Arm] Pulse Oximetry 96 94 99 Oxygen Delivery Me thod 09/02/24 11:01 Temperature Pulse Rate Pulse Rate [Pulse Oximeter] Respiratory Rate Blood Pressure 146/95 H Blood Pressure [Ri ght Upper Arm] Pulse Oximetry Oxygen Delivery Me thod Course Vital Signs Vital signs: Initial Vital Signs Temperature 96.9 F L 09/02/24 09:50 Temperature Source Temporal Artery Scan 09/02/24 09:50 Pulse Rate 89 09/02/24 09:50 Respiratory Rate 18 09/02/24 09:50 Blood Pressure 159/106 H 09/02/24 09:50 Blood Pressure Mean 123 H 09/02/24 09:50 Pulse Oximetry 95 09/02/24 09:50 Oxygen Delivery Method Room Air 09/02/24 09:50 Vital Signs Temperature 96.9 F L 09/02/24 09:50 Pulse Rate 89 09/02/24 09:50 Respiratory Rate 18 09/02/24 09:50 Blood Pressure 159/106 H 09/02/24 09:50 Pulse Oximetry 95 09/02/24 09:50 Oxygen Delivery Method Room Air 09/02/24 09:50 Temperature 96.9 F L 09/02/24 09:50 Pulse Rate 68 09/02/24 11:00 Respiratory Rate 16 09/02/24 10:37 Blood Pressure 146/95 H 09/02/24 11:01 Pulse Oximetry 99 09/02/24 11:00 Oxygen Delivery Method Room Air 09/02/24 10:37 Medications Administered Medications: Discontinued Medications Generic Name Dose Route Start Last Admin Trade Name Freq PRN Reason Stop Dose Admin Sodium Chloride 1,000 mls @ 6,000 mls/hr 09/02/24 11:00 09/02/24 11:24 0.9 % Sodium Chloride 1000 Ml IV 09/02/24 11:09 6,000 mls/hr .Q10M CHEMA Administration Morphine Sulfate 10 mg 09/02/24 09:57 09/02/24 10:03 Morphine 10 Mg/Ml Inj IM 09/02/24 09:58 10 mg ONCE ONE Administration Medical Decision Making MDM Narrative Medical decision making narrative: [age] white male with some type of lumbar fracture likely a co mpression fracture from a [place] injury. At this point I think probably proceeding with CT scan to be the most efficient because of the patient's complaint of a fracture that was ?broken all the way through?. Depending on his CT findings may need consultation with neuro surgery or trauma center. Will see how his x-ray returns. In the interim will given 10 mg IM morphine. Addendum 11:00 a.m.: The patient had a CT scan of his lumbar spine that shows an L1 to complete through and through fracture and a burst type fracture. There was antral pulsed fragment of the cortex about 9 mm, there is no retropulsed fragment. He is neurologically intact. I discussed the case with Dr. Davison ER doctor at [facility] who agrees to accept in transfer for Neurosurgery consult possible TLSO brace, and further care as directed. Dequan was comfortable that, will start an IV give him IV fluid put him on oximetry given he got morphine. Pain control as needed. Spine precautions meaning we will have him get up and move around no spine board is recommended at this time per her [facility]. He was comfortable plan. He is in stable condition to transfer. Transfer sheets completed. Discharge Plan Discharge Clinical Impression: Fracture of lumbar spine without cord injury Patient Disposition: Xfer Other Prescriptions: No Action oxycodone 5 mg capsule 5 mg PO Q6H cyclobenzaprine 10 mg tablet 10 mg PO 3XD metoprolol succinate 100 mg tablet extended release 24 hr 50 mg PO DAILY tamsulosin [Flomax] 0.4 mg capsule 0.4 mg PO DAILY Qty: 3 0RF oxycodone-acetaminophen [Percocet] 5-325 mg tablet 1 tab PO Q8H PRN (Reason: pain) Qty: 7 0RF Stand Alone Forms: MyHealth Info Instructions
[2024-09-02] MEDS: MORPHINE 10 MG/ML inj IM (10:03)
[2024-09-02 10:37] VITALS: BP 125/84; PULSE 70; PULSE 75; RESP 16; O2SAT 95; O2SAT 96
[2024-09-02 10:39] VITALS: BP 125/84; PULSE 73; O2SAT 96
[2024-09-02 10:45] VITALS: PULSE 74; O2SAT 94
[2024-09-02 11:00] VITALS: PULSE 68; O2SAT 99
[2024-09-02 11:01] VITALS: BP 146/95
[2024-09-02] MEDS: 0.9 % SODIUM CHLORIDE 1000 ml 1,000 ML 6000 ML IV (11:24)
== END 2024-09-02 11:25 | disposition other institution (70) ==
PROVIDERS: Emergency Provider Family Medicine; PCP Family Medicine
DX: N20.1 Calculus of ureter (principal)
CPT/HCPCS: 72131; 96372; 99284; J2270; J7030

== ENCOUNTER 2024-09-02 11:18 | Outpatient (CLI) | payer MEDICAID, SELFPAY | END 2024-09-02 11:19 | disposition home or self-care (01) | PROVIDERS: PCP Family Medicine; Visit Provider Family Medicine | DX: M54.9 Dorsalgia, unspecified (principal) | CPT/HCPCS: A0425; A0427 ==

== ENCOUNTER 2025-04-02 14:52 | Emergency (ER) | payer MEDICAID, SELFPAY ==
--- OUTSIDE RECORDS SUMMARY | 2025-03-19 15:10 | XMS_ITS | Encounter Summary ---
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 This is not a sleep study order and must first be reviewed by a sleep specialist to determine the next steps. The review process looks at multiple factors including your insurance requirements, personal health history, and [place] [employer] guidelines. This order will be reviewed within 1 business day and sent to scheduling for one of the following appointments: - Consultation/Office Visit with a Sleep Medicine Specialist - Consultation/Office Visit with an Insomnia Specialist - Portable/Home Sleep Test If you do not hear from our scheduling staff within the next 7 days, please contact us at [phone] and select option 1. QuestionAnswer Appointment Urgency Urgent (Patient needs to be seen within one week) Sleep Service Requested Sleep Consult Signs/Symptoms of YARON Excessive Daytime Sleepiness, Habitual or Disruptive Snoring Reason for visit evaluate for sleep apnea Comments Comments: BRIGITTE Age/Sex: 29 y.o. / male Height: 02/14/18 : 5' 11 (1.803 m) Weight: 03/19/25 : 219 lb (99.3 kg) BMI: Estimated body mass index is 30.54 kg/m?? as calculated from the following: Height as of 02/14/18: 5' 11 (1.803 m). Weight as of this encounter: 219 lb (99.3 kg). 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 Reason for Visit * ReasonCommentsMEDICATION CHECKFeeling cold and numbness on hands and feet, dizzy spells due to metropololOtherDiscuss ER visit from 09/02/24SLEEP,INABILITY TO Encounter Details DateTypeDepartmentCare Team (Latest Contact Info)Utygzpctzde95/16/2025 3:10 PM CSTOffice Visit [facility] [address] [place] [phone] [place] [address] [place], [place] [phone] Tachycardia (Primary Dx); Back spasm; Insomnia, unspecified type; Hypertension, unspecified type (HRC); Snoring Social History Tobacco UseTypesPacks/DayYears UsedDateSmoking Tobacco: FormerCigarsSmokeless Tobacco: Never Comments:Twice a month Alcohol UseStandard Drinks/WeekCommentsNot Currently0 (1 standard drink = 0.6 oz pure alcohol)holidays onlyHunger Vital SignAnswerDate RecordedWithin the past 12 months, you worried that your food would run out before you got the money to buy more.Never true07/11/2024Within the past 12 months, the food you bought just didn't last and you didn't have money to get more.Never true07/11/2024PRAPARE - TransportationAnswerDate RecordedIn the past 12 months, has lack of transportation kept you from medical appointments or from getting medications?No 07/11/2024In the past 12 months, has lack of transportation kept you from meetings, work, or from getting things needed for daily living?No07/11/2024 Housing Stability Vital SignAnswerDate RecordedIn the last 12 months, was there a time when you were not able to pay the mortgage or rent on time?No07/11/2024In the past 12 months, how many times have you moved where you were living?0 07/11/2024t any time in the past 12 months, were you homeless or living in a group home (including now)?No07/11/2024Sex and Gender InformationValueDate Recorded Sex Assigned at BirthNot on fileLegal JatTpvx1112/25/2013 5:59 PM CDTGender IdentityNot on fileSexual OrientationNot on fileOccupationIndustryJob Start Date 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 2 years agoNot on fileNot on fileNot on file documented as of this encounter Last Filed Vital Signs Vital SignReadingTime TakenCommentsBlood Vcvwfnfu140/9703/19/2025 2:55 PM 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 Vxcyk89620/16/2025 2:55 PM CSTTemperature--Respiratory Rate--Oxygen Saturation-- Inhaled Oxygen Concentration--Zlqmyl24.3 kg (219 lb)03/19/2025 2:55 PM CSTwith shoesHeight--Body Mass Index30.5402/14/2018 9:27 AM CSTdocumented in this encounter Patient Instructions * Patient Instructions* Jerardo Spring MD - 03/19/2025 3:10 PM 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 STOP METOPROLOL MONITOR BP AND HEART RATE TRY TRAZODONE FOR SLEEP RECOMMEND TO DO ULTRASOUND HEART ECHO SEE SLEEP DOCTOR TRY TIZANIDINE FOR BACK SPASM NEEDED SEE ME IN THE CLINIC WITH READINGS IN 2-3 WEEKS TUESDAY PREFERRED It's been a pleasure seeing you today. Jerardo Spring MD 03/19/2025, 3:37 PM 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 documented in this encounter Progress Notes * Jerardo Spring MD - 03/19/2025 3:10 PM CST Temo Baires is a 29 y.o. male who presents for MEDICATION CHECK (Feeling cold and numbness on hands and feet, dizzy spells due to metropolol); Other (Discuss ER visit from 09/02/24); and SLEEP,INABILITY TO History of Present Illness Dequan Zaragoza is a 29 year old male with hypertension who presents for evaluation of blood pressure and test results. Hypertension and blood pressure management - Hypertension managed with metoprolol, dose reduced from 100 mg to 50 mg - No regular home blood pressure monitoring. - No echocardiogram performed. - He would like to stop the medication. His grandmother also had cold hands and feet with metoprolol - Extremely cold hands and feet which she has noticed after taking metoprolol. - Occasional dizziness, not attributed to history of vertigo. Sleep disturbance - Difficulty sleeping, often only able to sleep for one hour at a time. - Frequent tossing and turning during sleep. - No caffeine or soda intake; only drinks water. - Attributes sleep issues to stress and some pain - Lumbar burst fracture in the summertime- Pain is mild - No history of sleep apnea in family. - Unaware of symptoms such as gasping or choking during sleep. - Sleep study recommended in 2019 by Cardiology but not completed Lumbar pain and musculoskeletal symptoms - History of lumbar compression burst fracture. - Dull pain at fracture site, rated 3-6 out of 10. - Last neurosurgery evaluation on November 29, 2024. - Cyclobenzaprine used for muscle relaxation, not effective. Medication use and treatment response - Melatonin used for sleep, not effective. - Concerns about trazodone which was previously prescribed due to information read online, but opento trying it for sleep issues. - Ashwagandha previously tried as recommended, unable to continue due to financial constraints. Objective BP (!) 145/97 (BP Location: Left Arm, BP Cuff Size: Large) Pulse (!) 109 Wt 219 lb (99.3 kg) Comment: with shoes BMI 30.54 kg/m?? Physical Exam VITALS: P- 93 MEASUREMENTS: Weight- 212-220. GENERAL: Alert, cooperative, well developed, no acute distress HEENT: Normocephalic, normal oropharynx, moist mucous membranes CHEST: Clear to auscultation bilaterally, No wheezes, rhonchi, or crackles CARDIOVASCULAR: Normal heart rate and rhythm, S1 and S2 normal without murmurs, Heart normal on auscultation. ABDOMEN: Soft, non-tender, non-distended, without organomegaly, Normal bowel sounds EXTREMITIES: No cyanosis or edema NEUROLOGICAL: Cranial nerves grossly intact, Moves all extremities without gross motor or sensory deficit Results Labs HbA1c: 5.1 Assessment/Plan Essential hypertension and tachycardia Blood pressure elevated despite weight loss. Heart rate at 93 bpm. Cold extremities post-metoprololsuggest side effects. patient says he did not have any cold extremities but after taking metoprololhe develops those symptoms - Stop metoprolol. - Monitor blood pressure and heart rate at home. - Recommend home blood pressure monitoring - Provide 8-10 readings of blood pressure and pulse. - Schedule echocardiogram. - Follow-up in 2-3 weeks, preferably on a Tuesday - Since I can discuss with Cardiology If I have aquestion. - Low threshold for cardiology referral Chronic low back pain and muscle spasm due to prior lumbar fracture Chronic pain at lumbar fracture site, rated 3-6/10. Previous cyclobenzaprine ineffective. Neurosurgery follow-up needed. - Prescribed tizanidine for muscle spasms as needed. - Encouraged follow-up with neurosurgery for pain management. Insomnia and suspected obstructive sleep apnea Difficulty sleeping, possibly due to stress or pain. Previous melatonin ineffective. Sleep study recommended. - Prescribed trazodone for sleep, starting with one tablet at bedtime, increasing to two if needed. - Referred to sleep medicine for evaluation and sleep study. - Monitor sleep quality and update in two weeks. Patient will follow-up in see me in 2-3 weeks Jerardo Spring MD 03/19/2025, 3:45 PM 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 documented in this encounter Plan of Treatment DateTypeDepartmentCare Team (Latest Contact Info)Rayxnfkibwf37/09/2026 12:30 PM CSTTelemedicine Special[facility] [facility] [address] [place] [address] Anthony Patterson MBBS [address] [facility] [address] [place] [address] 04/26/2025 1:00 PM CSTAppointment Cardiology Non-Invasive at [facility] [address] [place] [phone] 04/29/2025 1:50 PM CSTAppointment [facility] [address] [place] [phone] [place] [address] [place] [address] NameTypePriorityAssociated DiagnosesOrder ScheduleSleep Services-AdultsReferral Routine Snoring Ordered: 03/19/2025documented as of this encounter Visit Diagnoses Diagnosis Tachycardia- Primary Tachycardia, unspecified Back spasm Other symptoms referable to back Insomnia, unspecified type Hypertension, unspecified type (HRC) Snoring Other dyspnea and respiratory abnormality documented in this encounter Care Teams Team MemberRelationshipSpecialtyStart [place] [address] [place], [place] [phone] PCP - GeneralFamily Dwowrbza03/3/18documented as of this encounter
[2025-04-02 14:55] VITALS: BP 157/114; PULSE 107; RESP 16; TEMP 36.4; O2SAT 97; BMI 29.3
--- NOTE | 2025-04-02 15:04 | ED.GENADULT ---
HPI - General Adult General Chief complaint: Back Injury/Pain Stated complaint: LT Side and back pain Time Seen by Provider: 04/02/25 15:04 History of Present Illness HPI narrative: dianna cortez may have had bad eggs. has had dull achy sharp pain since L abd that radiates to L side. some diarrhea. feels like had fever on dianna. regular bms now . 29-year-old man presenting to the emergency department with concern left-sided abdominal pain. It has been in some combination dull and sharp in the left abdomen radiating around the side some to the back. Is wondering if maybe had a fever over Dianna. this some temporary diarrhea. Normal bowel movements now. Symptoms seem to have started around 6 days ago. They just have not let up now. O2 thought that been better by now. Has noticed any hematuria or dysuria. No pain in testicular area. Particular swelling. Does have a history of traumatic L1 fracture this last summer. this was comminuted. Was placed in a TLSO but has graduated from this. Overall has been feeling much better. Wondering if maybe the pain is coming from this but thinks less likely. Review records also shows a history of urolithiasis. Last seen here for this almost 2 years ago. I do note his elevated blood pressure and pulse on arrival here. He says that he has been working hard to lose weight his doctor discontinued from metoprolol furthermore seems to be describing some white coat hypertension/tachycardia. Measuring at home he says is quite good. Related Data Home Medications ?Medication ?Instructions ?Recorded ?Confirmed tizanidine 4 mg tablet 4 mg PO 3XD 04/02/25 04/02/25 trazodone 50 mg tablet PO 04/02/25 Previous Rx's ?Medication ?Instructions ?Recorded hydrocodone 5 mg-acetaminophen 325 1 - 2 tab PO Q4-6H PRN intense 04/02/25 mg tablet pain #8 tabs ketorolac 10 mg tablet 10 mg PO QID PRN pain #20 tabs 04/02/25 Allergies Allergy/AdvReac Type Severity Reaction Status Date / Time Penicillins AdvReac Severe Verified 04/19/23 08:17 amoxicillin AdvReac Intermediate Verified 04/19/23 08:10 hydrocodone AdvReac Intermediate Verified 04/19/23 08:10 Review of Systems Status of ROS: Reports: 6 or more systems reviewed and unremarkable except as noted in History and below [facility] Social History Smoking Status: Former smoker Do you use any of these nicotine containing products: None How often do you have a drink containing alcohol: monthly or less How often do you have six or more drinks on one occasion: Never AUDIT-C Alcohol total score: 1 Non-prescribed substance use: denies use Exam Narrative: Exam Narrative: pleasant. NAD. Very polite. Carefully groomed. Breathing easily. Heart is in elevated rate and regular rhythm. No flank pain to percussion. Abdomen is sore to palpation in the deep left abdomen as well as along the left rib edge laterally; Mid axillary line. No peritoneal signs. Masses appreciated. Does not have any genitourinary pain to palpation. no swelling or well defect appreciated. Const: Vital Signs, click to edit/add: Vital Signs - 24 hr 04/02/25 14:55 04/02/25 16:46 Temperature 97.6 F 98.7 F Pulse Rate [Pulse Oximeter] 107 H 89 Respiratory Rate 16 17 Blood Pressure [Ri ght Upper Arm] 157/114 H 139/105 H Pulse Oximetry 97 98 Oxygen Delivery Me thod Room Air Room Air Documenting provider has reviewed patient's vital signs: yes Course Vital Signs Vital signs: Initial Vital Signs Temperature 97.6 F 04/02/25 14:55 Temperature Source Temporal Artery Scan 04/02/25 14:55 Pulse Rate 107 H 04/02/25 14:55 Respiratory Rate 16 04/02/25 14:55 Blood Pressure 157/114 H 04/02/25 14:55 Blood Pressure Mean 128 H 04/02/25 14:55 Blood Pressure Position Sitting 04/02/25 14:55 Pulse Oximetry 97 04/02/25 14:55 Oxygen Delivery Method Room Air 04/02/25 14:55 Vital Signs Temperature 97.6 F 04/02/25 14:55 Pulse Rate 107 H 04/02/25 14:55 Respiratory Rate 16 04/02/25 14:55 Blood Pressure 157/114 H 04/02/25 14:55 Pulse Oximetry 97 04/02/25 14:55 Oxygen Delivery Method Room Air 04/02/25 14:55 Temperature 98.7 F 04/02/25 16:46 Pulse Rate 89 04/02/25 16:46 Respiratory Rate 17 04/02/25 16:46 Blood Pressure 139/105 H 04/02/25 16:46 Pulse Oximetry 98 04/02/25 16:46 Oxygen Delivery Method Room Air 04/02/25 16:46 Medications Administered Medications: Discontinued Medications Generic Name Dose Route Start Last Admin Trade Name Skylar PRN Reason Stop Dose Admin Lidocaine 1 patch 04/02/25 17:07 04/02/25 17:24 Lidocaine 5% Patch TRANSDERMA 04/02/25 17:08 1 patch ONCE ONE Administration Protocol Medical Decision Making MDM Narrative Medical decision making narrative: somewhat colicky nature to his pain suggests bowel or ureteral colic. Urinary tract infection otherwise? Diverticulitis? Residual colicky bowel pain from enteritis? Ureteral stone? there is however reproducible pain over his left mid axillary low rib edge as well. I think less likely that is radiating from his back but has been prone to muscle spasms historically. Symptoms inconsistent, per his question for pancreatitis. vascular disruption I think is unlikely. Some part costochondritis? Would collect urinalysis from further evaluation although regardless of findings it sounds like would be beneficial to have CT imaging done. Looking for stone primarily so will be done without contrast. noncontrast CT scan Impella reviewed by me shows some punctate stones within both kidneys. I do not appreciate hydroureter Orperinephric stranding. No inflammatory changes about the bowels. see radiology over-read below INDICATION: Left-sided flank pain, assess for kidney stones. TECHNIQUE: CT abdomen and pelvis without IV contrast. COMPARISON: Lumbar spine CT 09/02/2024, abdomen and pelvis CT 04/19/2023 FINDINGS: Evaluation of the solid organs is limited without IV contrast Lower chest: No pulmonary infiltrate, pleural effusion, or pneumothorax. Base of the heart, incompletely imaged distal thoracic esophagus, and incompletely imaged descending thoracic aorta are normal. Liver: No worrisome hepatic lesion. Stable subcentimeter hypodense lesions which are too small to characterize but are statistically simple cysts. Non-cirrhotic morphology. Gallbladder and bile ducts: No intrahepatic or extrahepatic biliary duct dilatation. Gallbladder is within normal limits. No visible gallstones. Pancreas: No focal masses. No pancreatic duct dilatation. No peripancreatic inflammation. Spleen: Normal in size. No masses. Adrenal glands: Within normal limits. Kidneys: No hydronephrosis or hydroureter. 0.1-0.2 cm nonobstructing calculi in the right kidney superior and inferior poles (series 2 images 40 and 54) and in the left kidney interpolar region (image 41). No solid mass lesions. GI tract: No abnormal wall thickening or visualized mass. No finding to suggest small or large bowel obstruction. Normal appendix. Vasculature: No aortoiliac atherosclerosis. No abdominal aortic aneurysm. Lymph nodes: No lymphadenopathy. Peritoneum/Retroperitoneum: No free air or significant free fluid. Pelvic organs/Bladder: Unremarkable. Bones: No acute fractures. Chronic severe L1 compression deformity with increased sclerosis since the 09/02/2024 study and unchanged alignment of fracture fragments. No worrisome osseous lesions. Incompletely assessed proximal left femur intramedullary nail and screws, visualized portions of the hardware are intact, distal portion of the nail is not included in the field of view. Mild degenerative changes of the spine. Soft tissues: Small fat containing umbilical hernia. No subcutaneous or intramuscular collection or mass. IMPRESSION: 1. Nonobstructing punctate bilateral renal calculi. 2. Chronic severe L1 compression deformity with increased sclerosis since 09/02/[address] Unchanged alignment of fracture fragments. Please note that all CT scans at this facility use dose modulation, iterative reconstruction, and/or weight-based dosing when appropriate to reduce radiation dose to as low as reasonably achievable. Dictated by Subhash Delaney MD @ 04/02/2025 4:27:54 PM Reassuring imaging. Urinalysis with trace lysed blood only. No evidence of diverticulitis or vascular compromise though imaging limited without IV contrast. May have irritated the rib margin with recurrent diarrheal cramping. overall improved not sure that without ureteral stone other evidence of urinary tract infection/dysfunction that there is benefit for chemistries. Has not been having so much vomiting or diarrhea that I would be worried that he has electrolyte abnormalities. At this point unsure given relatively benign exam and completed imaging what I would do with isolated elevated white count. Has appeared rather comfortable here. Trial of lidocaine patch - placed here at rib edge. Has struggled with sleep around metoprolol/ discontinuation. Is wondering about trazodone dosing as well as tizanidine. see patient discharge plan for further discussion if this lidocaine patch is helpful, you can purchase more [id number]. Consider doubling your trazodone to 100 mg per dose. You do appear to have reproducible pain at the left rib edge and deep in your left side. Non contrasted CT imaging does not suggest that there is anything at issue here. we do see small kidney stones but they are in your kidneys and should not be causing this pain. Suppose it is possible that you have some residual discomfort from this recent bout of diarrhea or that there might be some pain coming from your back. I would propose a few days of ketorolac. as discussed, if needed for flares of pain, I have made available a small quantity Hitchcock as well. be seen for fever, marked increase in persistent pain, new and focal weakness. Lab Data Labs: Lab Results 04/02/25 Range/Units 16:10 Urine Color Yellow (Yellow) Urine Appearance Clear (Clear) Urine pH 6.5 (5.0-8.5) Ur Specific [place] 1.010 (1.000-1.030) Urine Protein Negative (Negative) Urine Glucose (UA) Negative (Negative) Urine Ketones Negative (Negative) Urine Blood Trace-lysed A (Negative) Urine Nitrite Negative (Negative) Urine Bilirubin Negative (Negative) Urine Urobilinogen 0.2 (0.2-1.0) Ur Leukocyte Esterase Negative (Negative) Urine RBC 0-2 (0-2) Urine WBC 0-2 (0-5) Ur Squamous Epith Cells None (None-Few) Urine Bacteria None (None) Discharge Plan Discharge Clinical Impression: Left sided abdominal pain, Rib pain on left side Patient Disposition: Home, Self-Care Condition: Stable Additional Instructions: if this lidocaine patch is helpful, you can purchase more [id number]. Consider doubling your trazodone to 100 mg per dose. You do appear to have reproducible pain at the left rib edge and deep in your left side. Non contrasted CT imaging does not suggest that there is anything at issue here. we do see small kidney stones but they are in your kidneys and should not be causing this pain. Suppose it is possible that you have some residual discomfort from this recent bout of diarrhea or that there might be some pain coming from your back. I would propose a few days of ketorolac. as discussed, if needed for flares of pain, I have made available a small quantity Hitchcock as well. be seen for fever, marked increase in persistent pain, new and focal weakness. Prescriptions: New ketorolac 10 mg tablet 10 mg PO QID PRN (Reason: pain) Qty: 20 0RF Rx Instructions: maximum total duration of 5 days from all oral, intranasal, or parenteral formulations hydrocodone-acetaminophen 5-325 mg tablet 1 - 2 tab PO Q4-6H PRN (Reason: intense pain) Qty: 8 0RF No Action trazodone 50 mg tablet PO tizanidine 4 mg tablet 4 mg PO 3XD Follow Up/Referrals: Jerardo Spring MD [Primary Care Provider, Family Practice] Stand Alone Forms: MyHealth Info Instructions
--- OUTSIDE RECORDS SUMMARY | 2025-04-02 15:07 | XMS_ITS | Clinical Summary ---
Author Organization [facility] Address [address], [place] [address] Care Team Providers Care Agricultural Research Technician Name Role Phone Jerardo Spring MD Primary Care Provider [phone] Source Comments You are receiving this document [...] for each transition of care or referral. [facility] Allergies Active AllergyReactionsCriticalityNoted DateCommentsAmlodipineDizziness 02/22/2018Hydrocodone-StgcdzsoiucwdUbanxZnuf67/03/2014PenicillinsOther, see kygpuirm64/23/2014 Burning sensation and vomiting. Hydrocodone-OhbysyzhajvhcWlkaqkc60/17/2014 Medications MedicationSigDispense QuantityRefillsLast FilledStart DateEnd DateStatus Acetaminophen (TYLENOL OR) Take 500 mg by mouth as needed.Active cyclobenzaprine (FLEXERIL) 10 MG tablet Indications:Back spasmTake 1 Tablet (10 mg) by mouth three times a day as needed. 60 Tablet 04/01/2023ctive metoprolol succinate (TOPROL XL) 50 MG 24 hour release tablet Indications:TachycardiaTAKE 1 TABLET(50 MG) BY MOUTH DAILY 90 Tablet 5Active tiZANidine (ZANAFLEX) 4 MG tablet Indications:Back spasmTake 1 Tablet (4 mg) by mouth three times a day as needed. 60 Tablet 5Active traZODone (DESYREL) 50 MG tablet Indications:Insomnia, unspecified typeTake 1-2 Tablets (50-100 mg) by mouth daily at bedtime. 60 Tablet 5Active Active Problems ProblemNoted DateDiagnosed TacwRksjpatawxbhs90/22/2017Left leg pain09/23/2016 Depression with lbydccn1409/23/2016Essential euymizerbtws78/22/2017Closed displaced comminuted fracture of shaft of left femur11/21/2015 Encounters DateTypeDepartmentCare DlaySqayqxhsfkc51/16/2025 3:10 PM CSTOffice Visit [address] [phone] Jerardo Spring MD Tachycardia (Primary Dx); Back spasm; Insomnia, unspecified type; Hypertension, unspecified type (HRC); Snoringfrom Last 3 Months Immunizations ImmunizationAdministration DatesNext YnuOIQ6004/12/1995,1993DTP-Hib (Tetramune)01/28/1994,1993DTaP05/05/1998,04/12/1995HepB Ped/Adol (0-18 yrs)01/26/2006,06/03/2005,05/05/2005Hib (HbOC)1993Hib, Unspecified Nbdvqppzhmf54/09/1803LIU2305/05/1998,04/12/1995OPV, Trivalent (Orimune or tOPV) 05/05/1998,01/28/1994,1993,1993Tdap09/16/2013,05/05/2005Varicella 03/07/1997(Deferred: Immune by Disease) Family History Medical HistoryRelationNameCommentsAnxietyBirth Father 1Bipolar DisorderBirth Father 1COPDBirth Father 1DepressionBirth Father 1Cancer, BreastBirth Mother 1 Cancer, OtherBirth Mother 1Cervical/CervicalCancer, OvaryBirth Mother 1 SchizophreniaBirth Mother 1ScoliosisBirth Mother 1HyperlipidemiaMaternal GrandmotherCataractPaternal GrandmotherScoliosisSister 2DepressionSister 3 GlaucomaNegative Family HistoryMacular DegenerationNegative Family History Retinal DetachmentNegative Family HistoryRelationNameStatusCommentsBirth Father 1AliveBirth Father 2AliveBirth Mother 1AliveBirth Mother 2AliveMaternal GrandmotherPaternal GrandmotherSister 1AliveSister 2AliveSister 3 Social History Tobacco UseTypesPacks/DayYears UsedDateSmoking Tobacco: FormerCigarsSmokeless Tobacco: Never Tobacco Cessation:Counseling Given: Not Answered Comments:Twice a month Alcohol UseStandard Drinks/WeekCommentsNot Currently0 [...] were you homeless or living in a care home (including now)?No07/11/2024Sex and Gender InformationValueDate Recorded Sex Assigned at BirthNot on fileLegal LqsVdfr9412/25/2013 5:59 PM CDTGender IdentityNot on fileSexual OrientationNot on fileOccupationIndustryJob Start Date 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 2 years agoNot on fileNot on fileNot on file Last Filed Vital Signs Vital SignReadingTime TakenCommentsBlood Cmsnfwxb869/9712/ 2:55 PM INTERIOR DESIGN DIRECTOR Baqkh62466/16/2025 2:55 PM SGSZajhakuujfy53.8 ??C (98.2 ??F)03/11/2023 1:52 PM CSTRespiratory Aoac555905/12/2022 1:52 PM CSTOxygen Tpsegkzyyl565%03/11/2023 1:52 PM CSTInhaled Oxygen Concentration--Kcxgyl36.3 kg (219 lb)03/19/2025 2:55 PM INTERIOR DESIGN DIRECTOR with rpdkeUoiehl134.3 cm (5' 11)02/14/2018 9:27 AM CSTBody Mass Index30.54 02/14/2018 9:27 AM INTERIOR DESIGN DIRECTOR Plan of Treatment DateTypeDepartmentCare Team (Latest Contact Info)Soypostdtsb19/09/2026 12:30 PM [facility]ST[facility] Pulmonary Medicine [address] [facility] [place] [address] Anthony Patterson MBBS [address] [facility] [address] [place] [address] 04/26/2025 1:00 PM CSTAppointment Cardiology Non-Invasive at [facility] [address] [place] [phone] 04/29/2025 1:50 PM CSTAppointment [facility] [address] [phone] Jerardo [place] [id number] [place] [id number] Health MaintenanceDue DateLast DoneCommentsDTaP/Tdap/Td Vaccine (8 - Tdap) /, 05/05/2005, 05/05/1998, Additional history existsCOVID-19 Vaccine ( - 2024- season)2024Influenza Vaccine (#1)5Adult Preventive Visit04//12/2024, 09/23/2016, 05/05/2005, Additional history existsZoster/Shingles Vaccine (1 of 2)2043Hib SoafgktQaflfehzn71/09/1996, 01/28/1994, 1993, Additional history existsIPV (Polio) VaccineCompleted 05/05/1998, 01/28/1994, 1993, Additional history existsHepB Vaccine Hawqljjzg66/25/2006, 06/03/2005, 05/05/2005HIV Screening (Preventive Services) Jwjqplcgb47/22/2017Hep C Screening (Preventive Services)Hwbnqxqvz71/16/2023HPV Vaccine (No Doses Required)CompletedHepA VaccineAged OutNo longer eligible based on patient's age to complete this topicMCV4 VaccineAged OutNo longer eligible based on patient's age to complete this topicMeningococcal B VaccineAged OutNo longer eligible based on patient's age to complete this topicPneumococcal VaccineAged OutNo longer eligible based on patient's age to complete this topic Medical Devices ImplantedTypeAreaManufacturerDevice IdentifierShelf Expiration DateModel / Serial / LotNail Fem Ex Ti Marielos St 90c053 - [id number] Implanted:Qty: 1 on 12/26/2013 by Myranda Balderas MD at [facility] Left: FEMUR MIDSHAFTSynthes .013.660S / / [id number] Lk Ti T25 St 5.0x50 - [id number] Implanted:Qty: 1 on 12/26/2013 by Myranda Balderas MD at [facility] Left: [employer]EM[employer] .005.540S / / [id number] Lk Ti T25 St 5.0x40 - [id number] Implanted:Qty: 1 on 12/26/2013 by Myranda Balderas MD at [facility] Left: [employer] .005.530S / / [id number] Lk Ti T25 St 5.0x58 - [id number] Implanted:Qty: 1 on 12/26/2013 by Myranda Balderas MD at [facility] Left: FEMUR MIDSHA[employer] [facility].005.548S / / [id number] Lk Ti T25 St 5.0x80 - [id number] Implanted:Qty: 1 on 12/26/2013 by Myranda Balderas MD at [facility] Left: F[employer] [place].005.570S / / [id number] - [id number] Implanted:Qty: 1 on 12/26/2013 by Myranda Balderas MD at [facility] Left: [employer] [place].003.003S / / [id number]:12MM TI END CAP T40 STARDRIVE, 15MM EXT-STER/FEMORAL NAILS-EX Procedures Procedure NamePriorityDate/TimeAssociated DiagnosisCommentsHEPATITIS C ANTIBODY, WITH REFLEX (ANTI-HCV)Afjjqpd4304/19/2022 2:11 PM INTERIOR DESIGN DIRECTOR Need for hepatitis C screening test HIV 1/2 AG/AB 4TH JKLRxelcxh07/22/2017 11:35 AM CDT Screening for HIV (human immunodeficiency virus) from Last 3 Months or Most Recently Relevant to Health Maintenance Results * Hepatitis C Antibody, with Reflex (04/19/2022 2:11 PM INTERIOR DESIGN DIRECTOR)ComponentValueRef RangeTest MethodAnalysis TimePerformed AtPathologist SignatureHepatitis C AntibodyNegative (Non Reactive)Negative (Non Reactive)04/19/2022 7:12 PM INTERIOR DESIGN DIRECTOR [facility] LABComment:Antibodies to HCV not detected. Does not exclude the possiblity of exposure to HCV.Specimen (Source)Anatomical Location / LateralityCollection Method / VolumeCollection TimeReceived TimeBlood Venipuncture / Rmsyelw7704/19/2022 2:11 PM CST04/19/2022 2:11 PM INTERIOR DESIGN DIRECTOR Narrative Authorizing ProviderResult TypeResult StatusSushant Clementine BALDERASLAB_1Final Result Performing OrganizationAddressCity/State/ZIP CodePhone Number [facility] [address] [address], [facility] [phone] * HIV 1/2 Ag/Ab 4th Generation (09/23/2016 11:35 AM CDT)ComponentValueRef Range Test MethodAnalysis TimePerformed AtPathologist SignatureHIV 1/2 AG/AB 4thGEN Negative (Non Reactive)NEGNRPUSHMATAHA [facility] ANTL[facility] LABORATORIESComment:HIV-1 p24 Ag and HIV-1/HIV-2 Ab not detected.Specimen (Source)Anatomical Location / Laterality Collection Method / VolumeCollection TimeReceived Time09/23/2016 11:35 AM CDT 09/23/2016 11:37 AM CDT Narrative [facility] - 09/23/2016 3:56 PM CDT Performed at [facility], [address] [place] [address] Authorizing ProviderResult TypeResult StatusMarven Andres Sadler MDLAB_1Final ResultPerforming OrganizationAddressCity/State/ZIP CodePhone Number [facility] [phone] from Last 3 Months or Most Recently Relevant to Health Maintenance Insurance * Guarantor: Dequan Zaragoza TypeRelation to PatientDate of BirthPhone Billing AddressMVA/FJOCulr97 [address] [place] [phone] Advance Directives * Full Code (Latest Code Status on File) Date ActivatedDate InactivatedComments12/26/2013 2:22 PM12/29/2013 6:19 PM * Full Code Date ActivatedDate InactivatedComments12/26/2013 2:15 AM12/26/2013 2:22 PM * Full Code Date ActivatedDate InactivatedComments12/26/2013 1:57 AM12/26/2013 2:15 AM Care Teams Team MemberRelationshipSpecialtyStart [place] [address] [place] [address] PCP - GeneralFamily Wervnvpg51/3/18
--- OUTSIDE RECORDS SUMMARY | 2025-04-02 15:07 | XMS_ITS | Clinical Summary ---
Author Organization [facility] Address [address] [place] [address] Care Team Providers Care Automotive Starter Repairer Name Role Phone Jerardo Spring MD Primary Care Provider [phone] Allergies Active AllergyReactionsCriticalityNoted DateCommentsAmlodipineDizziness 02/22/2018Hydrocodone-KzgbmkpldeqxyUsoxtXzlc69/03/2014PenicillinsOther - Describe In Comment Field12/25/2013 Burning down esophagus Burning sensation and vomiting. Medications MedicationSigDispense QuantityRefillsLast FilledStart DateEnd DateStatus metoprolol succinate (TOPROL XL) 100 mg Sustained-Release tablet Take 100 mg by mouth.04/19/2022ctive cyclobenzaprine (FLEXERIL) 10 mg tablet Take 10 mg by mouth 3 times daily if needed.04/19/2022ctive dexAMETHasone (DECADRON) 4 mg tablet Indications:Sore throat,Tonsillar hypertrophyTake 1 tablet by mouth once daily after food for 3 days for tissue swelling 3 Tablet 02/21/2023ctive Social History Tobacco UseTypesPacks/DayYears UsedDateSmoking Tobacco: NeverSmokeless Tobacco: Never Tobacco Cessation:Counseling Given: Not Answered Alcohol UseStandard Drinks/WeekCommentsYes0 (1 standard drink = 0.6 oz pure alcohol)Sex and Gender InformationValueDate RecordedSex Assigned at BirthNot on fileLegal CezTxce6404/09/2014 1:26 PM CSTGender IdentityNot on fileSexual OrientationNot on file Last Filed Vital Signs Vital SignReadingTime TakenCommentsBlood Lxxnsjov306/80125 6:15 PM VISUAL AID EXPERT Mzblt8595 6:15 PM EJQLskkinjetfl85.4 ??C (97.5 ??F)02/21/2023 6:15 PM CSTRespiratory Rvpn072504/23/2022 6:15 PM CSTOxygen Ksqgkdkdwa38%02/21/2023 6:15 PM CSTInhaled Oxygen Concentration--Weight--Height--Body Mass Index-- Plan of Treatment Health MaintenanceDue DateLast DoneCommentsTetanus kyfbihp0304/16/2004Depression screening for age 12+2005HIV for age 15-65004/16/2008MI (ht and wt on same day) for age 18+2011Hepatitis C screening for age 18-7904/16/2011Hepatitis B series for 19+ (1 of 3 - 19+ 3-dose series)2012HPV series for age 9-45 (1 - 3-dose SCDM series)2020OVID-19 vaccine series ( - 2024- season) 2024Influenza Vaccine (#1)2024Pneumococcal series for age 6-49Aged OutNo longer eligible based on patient's age to complete this topic Insurance [place] [id number] [address] [id number] Care Teams Team MemberRelationshipSpecialtyStart DateEnd Date Jerardo Spring MD PCP - GeneralFamily Iqbxmeed05/6/18
--- OUTSIDE RECORDS SUMMARY | 2025-04-02 15:07 | XMS_ITS | Clinical Summary ---
Author Organization [facility] Address [address] [place] [address] Care Team Providers Care Sourcing Associate Name Role Phone [facility], [facility] Primary Care Provider Allergies Active AllergyReactionsCriticalityNoted HufeKozaqtbvEtihpekazxu46/18/2018 Burning down esophagus Hydrocodone-EsqfhihequrudSavmy48/03/2014 Medications MedicationSigDispense QuantityRefillsLast FilledStart DateEnd DateStatus LORazepam (ATIVAN) 0.5 MG tablet Take 1 tablet (0.5 mg) by mouth every 8 hours as needed for anxiety 8 tablet ctive LORazepam (ATIVAN) 0.5 MG tablet Take 1 tablet (0.5 mg) by mouth every 8 hours as needed for anxiety 8 tablet ctive AMLODIPINE BESYLATE PO Active PREDNISONE PO Active MOTRIN IB PO Active Social History Tobacco UseTypesPacks/DayYears UsedDateSmoking Tobacco: FormerSmokeless Tobacco: FormerAlcohol UseStandard Drinks/WeekCommentsYes0 (1 standard drink = 0.6 oz pure alcohol)occasionalSex and Gender InformationValueDate RecordedSex Assigned at BirthNot on fileLegal SciKqan18/04/2012 3:35 AM CSTGender IdentityNot on file Sexual OrientationNot on file Last Filed Vital Signs Vital SignReadingTime TakenCommentsBlood Osxcpdqo116/8702/19/2018 2:47 PM 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
--- NOTE | 2025-04-02 15:33 | CRLHL7_ITS ---
For Patients: As a result of the Century Cures Act, medical imaging exams and procedure reports are released immediately into your electronic medical record. You may view this report before your referring provider. If you have questions, please contact your health care provider. INDICATION: Left-sided flank pain, assess for kidney stones. TECHNIQUE: CT abdomen and pelvis without IV contrast. COMPARISON: Lumbar spine CT 09/02/2024, abdomen and pelvis CT 04/19/2023 FINDINGS: Evaluation of the solid organs is limited without IV contrast Lower chest: No pulmonary infiltrate, pleural effusion, or pneumothorax. Base of the heart, incompletely imaged distal thoracic esophagus, and incompletely imaged descending thoracic aorta are normal. Liver: No worrisome hepatic lesion. Stable subcentimeter hypodense lesions which are too small to characterize but are statistically simple cysts. Non-cirrhotic morphology. Gallbladder and bile ducts: No intrahepatic or extrahepatic biliary duct dilatation. Gallbladder is within normal limits. No visible gallstones. Pancreas: No focal masses. No pancreatic duct dilatation. No peripancreatic inflammation. Spleen: Normal in size. No masses. Adrenal glands: Within normal limits. Kidneys: No hydronephrosis or hydroureter. 0.1-0.2 cm nonobstructing calculi in the right kidney superior and inferior poles (series 2 images 40 and 54) and in the left kidney interpolar region (image 41). No solid mass lesions. GI tract: No abnormal wall thickening or visualized mass. No finding to suggest small or large bowel obstruction. Normal appendix. Vasculature: No aortoiliac atherosclerosis. No abdominal aortic aneurysm. Lymph nodes: No lymphadenopathy. Peritoneum/Retroperitoneum: No free air or significant free fluid. Pelvic organs/Bladder: Unremarkable. Bones: No acute fractures. Chronic severe L1 compression deformity with increased sclerosis since the 09/02/2024 study and unchanged alignment of fracture fragments. No worrisome osseous lesions. Incompletely assessed proximal left femur intramedullary nail and screws, visualized portions of the hardware are intact, distal portion of the nail is not included in the field of view. Mild degenerative changes of the spine. Soft tissues: Small fat containing umbilical hernia. No subcutaneous or intramuscular collection or mass. IMPRESSION: 1. Nonobstructing punctate bilateral renal calculi. 2. Chronic severe L1 compression deformity with increased sclerosis since 09/02/[address] Unchanged alignment of fracture fragments. Please note that all CT scans at this facility use dose modulation, iterative reconstruction, and/or weight-based dosing when appropriate to reduce radiation dose to as low as reasonably achievable. Dictated by Subhash Delaney MD @ 04/02/2025 4:27:54 PM (Electronically Signed)
[2025-04-02 16:14] LABS: Appearance Urine Clear (Clear)
[2025-04-02 16:46] VITALS: BP 139/105; PULSE 89; RESP 17; TEMP 37.1; O2SAT 98
[2025-04-02] MEDS: LIDOCAINE 5% PATCH 1 PATCH TRANSDERMA (17:24)
== END 2025-04-02 17:43 | disposition home or self-care (01) ==
PROVIDERS: Emergency Provider Family Medicine; PCP Family Medicine
DX: N20.0 Calculus of kidney (principal); R82.90 Unspecified abnormal findings in urine; R07.89 Other chest pain; Z87.891 Personal history of nicotine dependence
CPT/HCPCS: 74176; 81001; 99284; A9270